=== PATIENT | female | born 1975 | race Caucasian/White ===

== ENCOUNTER 2022-05-03 07:50 | Outpatient (CLI) | payer BC, SELFPAY ==
[2022-05-03 14:00] LABS: Iron* 49 ug/dL (37-170)
[2022-05-03 14:01] LABS: Creatinine Urine 13.7 mg/dL
[2022-05-03 14:04] LABS: Albumin* 4.1 g/dL (3.3-5.0); Chloride* 103 mmol/L (96-114)
[2022-05-03 14:05] LABS: Microalbumin Creatinine Ratio 70 mg/g (0-30); Microalbumin Urine < 1 mg/dL; Potassium* 4.2 mmol/L (3.6-5.1); Sodium* 137 mmol/L (135-149)
[2022-05-03 14:07] LABS: Aspartate Amino Transferase* 25 U/L (12-35); Blood Urea Nitrogen* 10 mg/dL (5-24); Carbon Dioxide* 30 mmol/L (20-32); Creatinine* 0.6 mg/dL (0.5-1.5); Estimated Glomerular Filt Rate 113 ml/min
[2022-05-03 14:08] LABS: Alanine Aminotransferase* 22 U/L (4-35); Calcium* 9.2 mg/dL (8.4-10.6); Glucose* 85 mg/dL (60-115); Phosphorus* 3.9 mg/dL (2.5-4.5); Uric Acid* 2.9 mg/dL (2.2-8.4)
[2022-05-03 14:10] LABS: Percent Iron Saturation 12 % (20-50); Total Iron Binding Capacity 410 ug/dL (265-497)
[2022-05-03 14:38] LABS: Ferritin* 5.7 ng/mL (6.24-137.0)
== END 2022-05-03 07:51 | disposition home or self-care (01) ==
PROVIDERS: PCP Physician Assistant Medical; Visit Provider Internal Medicine Nephrology
DX: D50.9 Iron deficiency anemia, unspecified (principal); E87.1 Hypo-osmolality and hyponatremia; I10 Essential (primary) hypertension; N18.1 Chronic kidney disease, stage 1; L29.9 Pruritus, unspecified; R42 Dizziness and giddiness
CPT/HCPCS: 80069; 82043; 82570; 82728; 83540; 83550; 84450; 84460; 84550

== ENCOUNTER 2022-08-02 15:05 | Outpatient (CLI) | payer BC, SELFPAY ==
[2022-08-02 14:24] LABS: Albumin* 4.1 g/dL (3.3-5.0); Chloride* 101 mmol/L (96-114); Potassium* 4.1 mmol/L (3.6-5.1); Sodium* 138 mmol/L (135-149)
[2022-08-02 14:27] LABS: Blood Urea Nitrogen* 12 mg/dL (5-24); Carbon Dioxide* 30 mmol/L (20-32); Creatinine* 0.5 mg/dL (0.5-1.5); Estimated Glomerular Filt Rate 118 ml/min
[2022-08-02 14:28] LABS: Glucose* 87 mg/dL (60-115); Phosphorus* 4.1 mg/dL (2.5-4.5); Uric Acid* 3.3 mg/dL (2.2-8.4)
[2022-08-02 14:45] LABS: C Reactive Protein* < 0.5 mg/dL (0.5-1.0)
[2022-08-02 15:43] LABS: Creatinine Urine 9.2 mg/dL; Microalbumin Creatinine Ratio 100 mg/g (0-30); Microalbumin Urine < 1 mg/dL
[2022-08-02 16:08] LABS: Iron* 49 ug/dL (37-170)
[2022-08-02 16:17] LABS: Percent Iron Saturation 12 % (20-50); Total Iron Binding Capacity 418 ug/dL (265-497)
[2022-08-02 16:44] LABS: Ferritin* 8.3 ng/mL (6.24-137.0)
== END 2022-08-02 15:06 | disposition home or self-care (01) ==
PROVIDERS: PCP Physician Assistant Medical; Visit Provider Internal Medicine Nephrology
DX: D50.9 Iron deficiency anemia, unspecified (principal); N18.1 Chronic kidney disease, stage 1
CPT/HCPCS: 80069; 82043; 82570; 82728; 83540; 83550; 84550; 86140

== ENCOUNTER 2023-01-24 08:01 | Outpatient (CLI) | payer BC, SELFPAY | END 2023-01-24 08:02 | disposition home or self-care (01) | LOC: NFLDREF 01-27 08:46 | PROVIDERS: PCP Physician Assistant Medical; Referring Provider Physician Assistant Medical; Visit Provider Internal Medicine Nephrology | DX: D50.9 Iron deficiency anemia, unspecified (principal); E87.1 Hypo-osmolality and hyponatremia; N18.1 Chronic kidney disease, stage 1 | CPT/HCPCS: 80069; 82043; 82570; 82728; 83540; 83550; 84450; 84460; 84550 ==

== ENCOUNTER 2023-08-30 09:59 | Outpatient (CLI) | payer BC, SELFPAY | END 2023-08-30 10:00 | disposition home or self-care (01) | LOC: NFLDREF 08-31 06:37 | PROVIDERS: PCP Physician Assistant Medical; Referring Provider Physician Assistant Medical; Visit Provider Internal Medicine Nephrology | DX: D50.9 Iron deficiency anemia, unspecified (principal); E87.1 Hypo-osmolality and hyponatremia; N18.1 Chronic kidney disease, stage 1; R73.09 Other abnormal glucose | CPT/HCPCS: 80069; 82728; 83540; 83550; 86140; 87086 ==

== ENCOUNTER 2023-10-16 07:45 | Outpatient (CLI) | payer BC, SELFPAY ==
--- NOTE | 2023-10-16 08:00 | CRLHL7_ITS ---
For Patients: As a result of the Century Cures Act, medical imaging exams and procedure reports are released immediately into your electronic medical record. You may view this report before your referring provider. If you have questions, please contact your health care provider. Indication: Injury to nose Technique: CT of the paranasal sinuses without contrast. Coronal and sagittal reformatted images. Bone and soft tissue algorithms. Comparison: 06/15/18 CT Findings: Frontal sinuses: The frontal sinuses and frontal recesses are clear. Ethmoid air cells: The ethmoid air cells are clear. Symmetric depths of the olfactory fossa. The anterior ethmoidal arteries course through pneumatized air cells. Sphenoid sinuses: The sphenoid sinuses and ostia are clear. No optic canal or carotid canal dehiscence. Maxillary sinuses: Polypoid mucosal thickening along the floor of the left maxillary sinus measures up to 9 mm. Trace mucosal thickening along the floor of the right maxillary sinus. The osteomeatal units are clear. Bilateral Fernando air cells. Nasal cavity: Punctate minimally displaced fractures along the anterior nasal spine (series 3 image 38). Rightward deviation of nasal septum with septal spur contacting the inferior turbinate. No meaghan bullosa. No paradoxical turbinates. Skullbase, maxilla, TMJ: No lytic or blastic osseous lesions. No periapical tooth lucencies. Mastoid air cells are clear. Advanced right temporomandibular joint degenerative changes are partially visualized. Orbital contents: Unremarkable Imaged intracranial contents: Unremarkable Imaged soft tissues structures: Unremarkable IMPRESSION: 1. Punctate minimally displaced fractures along the anterior nasal spine. 2. Rightward deviation of nasal septum with septal spur contacting the inferior turbinate. 3. Mild polypoid mucosal thickening along the floor of the left maxillary sinus. 4. Advanced right temporomandibular joint degenerative changes (significant worsening since 2018). Please note that all CT scans at this facility use dose modulation, iterative reconstruction, and/or weight-based dosing when appropriate to reduce radiation dose to as low as reasonably achievable. Dictated by Adam Waters MD @ 10/16/2023 9:23:59 AM (Electronically Signed)
== END 2023-10-16 07:46 | disposition home or self-care (01) ==
LOC: CT 07:46
PROVIDERS: PCP Physician Assistant Medical; Visit Provider Otolaryngology
DX: S09.92XA Unspecified injury of nose, initial encounter (principal); S02.2XXA Fracture of nasal bones, initial encounter for closed fracture; J34.2 Deviated nasal septum; J32.0 Chronic maxillary sinusitis; M26.601 Right temporomandibular joint disorder, unspecified
CPT/HCPCS: 70486

== ENCOUNTER 2023-11-17 10:24 | Day surgery (SDC) | payer BC, SELFPAY ==
[2023-11-17] VITALS (10 sets, daily range): BP systolic 109–135; BP diastolic 61–84; PULSE 76–103; RESP 12–19; TEMP 36.3–37.1; O2SAT 94–97; BMI 29.0
[2023-11-17] MEDS: SODIUM CHLORIDE 0.9 % (FLUSH) 10 ML SYRINGE IVF (11:04)
[2023-11-17] MEDS: LACTATED RINGERS 1000 ML 1,000 ML 100 ML IV (11:05)
[2023-11-17] MEDS: OXYMETAZOLINE 0.05% NASAL SPRAY 2 SPRAY NOSTRIL-B (12:00)
[2023-11-17] MEDS: BUPIVACAINE 0.5%/EPINEPHRINE 0.9 MG (30.9 ML) INJECTION (12:45)
[2023-11-17] MEDS: MUPIROCIN 1 GM PACKET 1 APPLIC TOPICAL (12:45)
[2023-11-17] MEDS: COCAINE HCL 4 % 4 ML SOLUTION NOSTRIL-B (12:45)
--- NOTE | 2023-11-17 13:16 | P.ENTPROC_ITS ---
Procedure Note Date of procedure: 11/17/23 Procedure: Preoperative diagnosis deviated septum nasal obstruction bilateral inferior turbinate hypertrophy Postoperative diagnosis same Procedure nasal septoplasty, submucous partial resection inferior turbinates bilateral Under general endotracheal anesthesia patient was prepped and draped usual fashion nose decongested and injected. Incision was made in the septal mucosa anterior to the right flexion and area 3. The mucosa on either side was elevated and the deflected portions of bone and cartilage were resected. A single piece was trimmed and returned to intraseptal space. A stab incision was made in the anterior of the right inferior turbinate a tunnel created with a Concordia dissector. The meaghan bone was outfractured a conservative anterior submucous resection was performed. This was repeated on the left side in ident ical fashion. The Coblation was used for hemostasis on each side. Merocel packing coated in Bactroban was placed on either side of the septum. The patient procedure well was taken recovery satisfactory condition blood loss 10 mL. Surgeon: Kelechi Tobias MD
--- NOTE | 2023-11-17 13:20 | W.ANESCHARGE ---
Anesthesia Charges Start Date/Time Anesthesia Start Date: 11/17/23 Anesthesia Start Time: 12:39 Stop Date/Time Anesthesia Stop Date: 11/17/23 Anesthesia Stop Time: 13:20
--- NOTE | 2023-11-17 13:43 | W.ANESCHARGE ---
Anesthesia Charges Start Date/Time Anesthesia Start Date: 11/17/23 Anesthesia Start Time: 12:39 Stop Date/Time Anesthesia Stop Date: 11/17/23 Anesthesia Stop Time: 13:20
[2023-11-17] MEDS: OXYCODONE 5 MG TABLET PO (14:03)
== END 2023-11-17 14:33 | disposition home or self-care (01) ==
LOC: OR 10:25
PROVIDERS: PCP Physician Assistant Medical; Visit Provider Otolaryngology
PROC: (CPT 30520; principal; 2023-11-17 11:45)
DX: J34.2 Deviated nasal septum (principal); J34.3 Hypertrophy of nasal turbinates; J34.89 Other specified disorders of nose and nasal sinuses
CPT/HCPCS: 30520; 30140; 00160; A9270; J0330; J1100; J2405; J3010; J7120

== ENCOUNTER 2023-12-25 07:41 | Outpatient (CLI) | payer BC, SELFPAY | END 2023-12-25 07:42 | disposition home or self-care (01) | LOC: NFLDREF 12-29 08:36 | PROVIDERS: PCP Physician Assistant Medical; Referring Provider Physician Assistant Medical; Visit Provider Internal Medicine Nephrology | DX: D50.9 Iron deficiency anemia, unspecified (principal); E87.1 Hypo-osmolality and hyponatremia; N18.1 Chronic kidney disease, stage 1 | CPT/HCPCS: 80069; 82043; 82570; 82728; 83540; 83550; 84550; 87086 ==

== ENCOUNTER 2024-01-01 17:15 | Outpatient (CLI) | payer BC, SELFPAY | END 2024-01-01 17:16 | disposition home or self-care (01) | LOC: NFLDREF 01-03 07:25 | PROVIDERS: PCP Physician Assistant Medical; Referring Provider Physician Assistant Medical; Visit Provider Internal Medicine Nephrology | DX: R53.83 Other fatigue (principal); M79.662 Pain in left lower leg; I10 Essential (primary) hypertension; E87.1 Hypo-osmolality and hyponatremia | CPT/HCPCS: 84443 ==

== ENCOUNTER 2024-01-08 14:49 | Outpatient (CLI) | payer BC, SELFPAY ==
--- NOTE | 2024-01-08 15:00 | US_ITS ---
Patient: EWA MOORE Facility:?[facility] Patient ID:?[id number] Site Patient ID:?[id number]. Site :?1975 Study:?US-Extremity Left LEV LT-01/08/2024 3:58:42 PM Ordering Physician:?KAROLINA SWEET Final Report: Indication: Left calf pain and swelling, hx of DVT Technique: Venous duplex ultrasound of the left lower extremity, deep vein thrombosis protocol, utilizing compression with grayscale and color and spectral Doppler Comparison: None Findings: Nonocclusive deep vein thrombosis in 1 of the 2 peroneal veins. No additional deep vein thrombosis in the interrogated veins of the left lower extremity. There is no superficial vein thrombosis. The soft tissues are within normal limits. Impression: Nonocclusive deep vein thrombosis in 1 of the 2 peroneal veins of the left lower extremity. Dictated by Dean Moyer MD @ 01/08/2024 4:23:40 PM Signed by:?Dean Moyer MD @01/08/2024 4:23:40 PM (Electronic Signature)
== END 2024-01-08 14:50 | disposition home or self-care (01) ==
PROVIDERS: PCP Physician Assistant Medical; Visit Provider Internal Medicine Nephrology
DX: M79.662 Pain in left lower leg (principal); I82.452 Acute embolism and thrombosis of left peroneal vein
CPT/HCPCS: 93971

== ENCOUNTER 2024-04-30 14:32 | Outpatient (CLI) | payer OTHER, SELFPAY | END 2024-04-30 14:33 | disposition home or self-care (01) | PROVIDERS: PCP Physician Assistant Medical; Visit Provider Physician Assistant Medical | DX: R53.83 Other fatigue (principal); E87.1 Hypo-osmolality and hyponatremia; I10 Essential (primary) hypertension; D50.9 Iron deficiency anemia, unspecified; N18.1 Chronic kidney disease, stage 1; E53.8 Deficiency of other specified B group vitamins; E55.9 Vitamin D deficiency, unspecified; R63.4 Abnormal weight loss; R19.7 Diarrhea, unspecified | CPT/HCPCS: 80069; 82043; 82570; 82728; 83540; 83550; 84443; 84550; 86140; 87086; 87186; 87205 ==

== ENCOUNTER 2024-05-01 10:00 | Outpatient (CLI) | payer OTHER, SELFPAY ==
--- NOTE | 2024-05-09 12:10 | ONC.NURNOTE ---
Dx: Low ferritin
== END 2024-05-01 10:01 | disposition home or self-care (01) ==
LOC: NFLDREF 05-02 02:33
PROVIDERS: PCP Physician Assistant Medical; Referring Provider Physician Assistant Medical; Visit Provider Physician Assistant Medical
DX: R19.7 Diarrhea, unspecified (principal)
CPT/HCPCS: 87493; 87505

== ENCOUNTER 2024-05-03 16:46 | Outpatient (CLI) | payer OTHER, SELFPAY ==
--- NOTE | 2024-05-03 17:00 | CRLHL7_ITS ---
For Patients: As a result of the Century Cures Act, medical imaging exams and procedure reports are released immediately into your electronic medical record. You may view this report before your referring provider. If you have questions, please contact your health care provider. INDICATION: Acute embolism and thrombosis of unspecified deep vein. COMPARISON: Left lower extremity venous ultrasound 01/08/2024. TECHNIQUE: A compression venous ultrasound exam was performed of the left lower extremity using jackson-scale imaging, color Doppler, and spectral Doppler analysis. FINDINGS: Sonographic imaging of the left lower extremity demonstrates normal compressibility and color Doppler venous blood flow within the common femoral, femoral, deep femoral, and proximal greater saphenous veins. At a lower level the popliteal, peroneal, and posterior tibial veins also show normal compressibility and color Doppler venous blood flow. Limited imaging of the contralateral groin demonstrates a normal spectral waveform and color Doppler venous blood flow within the right common femoral vein. IMPRESSION: 1. Negative for acute DVT in the left lower extremity. 2. Resolution of the previously seen thrombus. Dictated by Taylor Kerr MD @ 05/04/2024 3:03:52 AM (Electronically Signed)
== END 2024-05-03 16:47 | disposition home or self-care (01) ==
LOC: US 16:47
PROVIDERS: PCP Physician Assistant Medical; Visit Provider Physician Assistant Medical
DX: I82.409 Acute embolism and thrombosis of unspecified deep veins of unspecified lower extremity (principal)
CPT/HCPCS: 93971

== ENCOUNTER 2024-05-27 08:30 | Outpatient (RCR) | payer OTHER, SELFPAY ==
--- NOTE | 2024-05-10 10:47 | URNOTE ---
Prior auth is not required for Isabel([id number]) per [facility], REf #[id number]
[2024-05-14 13:07] VITALS: BP 103/58; PULSE 78; RESP 16; TEMP 36.4; O2SAT 98
[2024-05-14] MEDS: IRON SUCROSE COMPLEX 200 MG in 0.9 % SODIUM CHLORIDE 100 ml 440 MG IVPB (13:32)
[2024-05-14 13:53] VITALS: BP 89/55; PULSE 67; RESP 18; TEMP 36.1; O2SAT 95
[2024-05-14 14:17] VITALS: BP 124/82; PULSE 69; RESP 16; TEMP 36.4; O2SAT 98
[2024-05-16 08:15] VITALS: BP 116/64; PULSE 69; RESP 16; TEMP 35.8; O2SAT 99
[2024-05-16] MEDS: SODIUM CHLORIDE 0.9 % (FLUSH) 10 ML SYRINGE IVF ×2 (08:35→09:30)
[2024-05-16] MEDS: 0.9 % SODIUM CHLORIDE 250 ml IV ×2 (08:35→09:30)
[2024-05-16] MEDS: IRON SUCROSE COMPLEX 200 MG in 0.9 % SODIUM CHLORIDE 100 ml 440 MG IVPB (08:35)
[2024-05-16 09:30] VITALS: BP 109/76; PULSE 68; RESP 16; TEMP 36.2; O2SAT 97
[2024-05-21 08:27] VITALS: BP 119/78; PULSE 68; RESP 16; TEMP 35.9; O2SAT 100
[2024-05-21] MEDS: IRON SUCROSE COMPLEX 200 MG in 0.9 % SODIUM CHLORIDE 100 ml 440 MG IVPB (08:51)
[2024-05-21] MEDS: 0.9 % SODIUM CHLORIDE 250 ml IV (08:51)
[2024-05-21] MEDS: SODIUM CHLORIDE 0.9 % (FLUSH) 10 ML SYRINGE IVF (08:51)
[2024-05-21 09:10] VITALS: BP 101/59; PULSE 77; RESP 16; TEMP 36.5; O2SAT 98
[2024-05-21 09:56] VITALS: BP 133/73; PULSE 77; RESP 14; TEMP 36.3; O2SAT 97
[2024-05-23 07:56] VITALS: BP 123/79; PULSE 69; RESP 16; TEMP 36.1; O2SAT 99
[2024-05-23] MEDS: IRON SUCROSE COMPLEX 200 MG in 0.9 % SODIUM CHLORIDE 100 ml 440 MG IVPB (08:23)
[2024-05-23] MEDS: 0.9 % SODIUM CHLORIDE 250 ml IV (08:24)
[2024-05-23] MEDS: SODIUM CHLORIDE 0.9 % (FLUSH) 10 ML SYRINGE IVF (08:24)
[2024-05-27 08:20] VITALS: BP 109/65; PULSE 68; RESP 16; TEMP 36; O2SAT 98
[2024-05-27] MEDS: 0.9 % SODIUM CHLORIDE 250 ml IV (09:13)
[2024-05-27] MEDS: IRON SUCROSE COMPLEX 200 MG in 0.9 % SODIUM CHLORIDE 100 ml 440 MG IVPB (09:14)
[2024-05-27 09:33] VITALS: BP 112/74; PULSE 70; RESP 18; O2SAT 98
[2024-05-27 10:03] VITALS: BP 118/78; PULSE 66; RESP 16
== END 2024-11-10 23:59 | disposition home or self-care (01) ==
LOC: CCIC 08:30
PROVIDERS: PCP Physician Assistant Medical; Referring Provider Physician Assistant Medical; Visit Provider Clinical Nurse Specialist
DX: D50.9 Iron deficiency anemia, unspecified (principal)
CPT/HCPCS: 96365; 96374; J1756; J7050

== ENCOUNTER 2024-07-11 15:31 | Outpatient (CLI) | payer OTHER, SELFPAY ==
[2024-07-11 15:59] LABS: Creatinine* 0.6 mg/dL (0.5-1.5); Estimated Glomerular Filt Rate 111 ml/min
--- NOTE | 2024-07-11 16:00 | CRLHL7_ITS ---
For Patients: As a result of the 21st Century Cures Act, medical imaging exams and procedure reports are released immediately into your electronic medical record. You may view this report before your referring provider. If you have questions, please contact your health care provider. Indication: DEEP VEIN THROMBOSIS, IRON Deficiency ANEMIA Technique: CT Chest/Abd/Pelvis w/ 85cc [id number] Please note that all CT scans at this facility use dose modulation, iterative reconstruction, and/or weight-based dosing when appropriate to reduce radiation dose to as low as reasonably achievable. Comparison: 10/28/2017 CT abdomen and pelvis Findings: In the chest, the small incidental perifissural nodule is present on the right measuring 3.3 millimeters, 3/51. Mild linear subsegmental scarring at the lingula. No pleural effusion or infiltrate. No pulmonary edema or pneumothorax. Incidental elongation of the right thyroid lobe noted posteriorly without suspicious thyroid nodule. No adenopathy in the mediastinum, kareem or axilla. Wedging of the L1 vertebral body noted at the superior endplate. In the abdomen, the liver parenchyma is within normal limits. No suspicious mass. The spleen is normal. No adrenal nodule. No hydronephrosis. The kidneys are normal. Normal pancreas. Postop changes to the stomach. Gallbladder absent. No biliary obstruction. Subcentimeter retroperitoneal lymph nodes are present. The portal vein is widely patent. In the pelvis, the bladder is normal. No pelvic mass. Postop changes hysterectomy. Increased stool is present within a somewhat redundant colon. Small bowel loops are mildly prominent within pelvis containing air/fluid levels. No bowel wall thickening. No free air, free fluid or abscess. No enlarged lymph nodes within the pelvic sidewall or inguinal regions. Impression: Excess stool within a somewhat redundant colon consistent with chronic constipation. Mildly prominent small bowel loops are present suggesting adynamic ileus. No mechanical obstruction or acute inflammation. Postop changes of gastric bypass. Wedge compression deformity of L1 has developed since the prior study. Incidental 3.3 millimeter perifissural nodule right lung. Normal patency of the main portal vein. No adenopathy. Please note that all CT scans at this facility use dose modulation, iterative reconstruction, and/or weight-based dosing when appropriate to reduce radiation dose to as low as reasonably achievable. Dictated by Adam Avila MD @ 07/12/2024 1:08:48 PM (Electronically Signed)
== END 2024-07-11 15:32 | disposition home or self-care (01) ==
PROVIDERS: PCP Physician Assistant Medical; Visit Provider Internal Medicine Hematology & Oncology
DX: I80.2 Phlebitis and thrombophlebitis of other and unspecified deep vessels of lower extremities (principal); D50.8 Other iron deficiency anemias; K59.00 Constipation, unspecified; R91.8 Other nonspecific abnormal finding of lung field; F17.200 Nicotine dependence, unspecified, uncomplicated
CPT/HCPCS: 36415; 71260; 74177; 82565; Q9967

== ENCOUNTER 2024-07-16 12:47 | Outpatient (CLI) | payer OTHER, SELFPAY ==
--- NOTE | 2024-07-16 13:00 | MR_ITS ---
[address] [address] Phone:?[phone] Fax:?[phone] Referring Physician Information: Stephen Roberts M.D. [address] [facility] [address] Phone:?[phone] Fax:?[phone] Patient:Keira Whitaker D.O.B:?1975 Sex:?Female Phone:?[phone] [facility] MRN:?[id number] Exam Date:?07/16/2024 EXAM: MRI EXAMINATION OF THE RIGHT FOOT CLINICAL INFORMATION: Right foot pain. Status post injury. No history of surgery to this area. TECHNICAL INFORMATION: Axial PD and STIR. Coronal T1, T2 and STIR. Sagittal PD and T2-weighted images were acquired. No prior studies for comparison. INTERPRETATION: Bones and joints: There is a mild appearance of deformity as may be related to a chronic, healed fracture towards the base of the fifth metatarsal. There is a poorly defined appearance of marrow edema signal within the proximal shaft. There is no evidence for associated periostosis. No discrete osteochondral lesion or discrete lesion to indicate AVN. Medial and lateral hallux sesamoids appear normal in signal intensity and morphology. Mild, likely degenerative osseous cystic changes involving the medial aspect of the first metatarsal head. Ligaments: The Lisfranc ligament is intact. TMT joint alignment appears within normal limits. Collateral ligaments at the MTP joints appear intact without acute sprain or tear. Tendons: Peroneus longus and brevis tendon insertions appear intact. Remainder of the visualized flexor and extensor tendons appear intact without significant tendinopathy, and without tenosynovitis, tendon split or tendon disruption. Soft tissues: No discrete soft tissue cyst, mass or focal fluid collection. CONCLUSION: 1. Mild deformity as may be related to a chronic, healed fracture towards the base of the fifth metatarsal. 2. Poorly defined marrow edema signal involves the proximal shaft of the fifth metatarsal. No evidence for associated periostosis. Question whether this may be related to a component of occult bony stress injury. 3. Intact Lisfranc ligament with unremarkable TMT joint alignment. 4. No appreciable changes of tendon pathology. No other internal derangement. KES Electronically signed on 07/17/2024 9:12:00 AM by Ghassan Arcos M.D.
== END 2024-07-16 12:48 | disposition home or self-care (01) ==
LOC: MRI 12:48
PROVIDERS: PCP Physician Assistant Medical; Visit Provider Internal Medicine Sports Medicine
DX: M79.671 Pain in right foot (principal); S92.351D Displaced fracture of fifth metatarsal bone, right foot, subsequent encounter for fracture with routine healing; S99.921A Unspecified injury of right foot, initial encounter
CPT/HCPCS: 73718

== ENCOUNTER 2024-08-28 13:51 | Outpatient (CLI) | payer OTHER, SELFPAY ==
--- NOTE | 2024-08-28 14:00 | CRLHL7_ITS ---
For Patients: As a result of the Century Cures Act, medical imaging exams and procedure reports are released immediately into your electronic medical record. You may view this report before your referring provider. If you have questions, please contact your health care provider. INDICATION: Leg pain and swelling TECHNIQUE: Ultrasound venous duplex lower left extremity. Compression venous exam was performed using jackson-scale, color Doppler, and spectral Doppler analysis. COMPARISON: None. FINDINGS: Sonographic imaging demonstrates the left common femoral, deep femoral, superficial femoral, popliteal, posterior tibial and greater saphenous and the contralateral right common femoral veins to be fully compressible with normal color Doppler blood flow. IMPRESSION: Normal left lower extremity venous ultrasound, no sign of deep venous thrombosis. Dictated by Jostin Graf MD @ 08/28/2024 3:02:22 PM (Electronically Signed)
== END 2024-08-28 13:52 | disposition home or self-care (01) ==
LOC: US 13:52
PROVIDERS: PCP Physician Assistant Medical; Visit Provider Internal Medicine Hematology & Oncology
DX: M79.605 Pain in left leg (principal); R22.42 Localized swelling, mass and lump, left lower limb; D50.8 Other iron deficiency anemias; F17.200 Nicotine dependence, unspecified, uncomplicated; I82.409 Acute embolism and thrombosis of unspecified deep veins of unspecified lower extremity
CPT/HCPCS: 93971

== ENCOUNTER 2025-03-24 13:36 | Outpatient (CLI) | payer OTHER, SELFPAY | END 2025-03-24 13:37 | disposition home or self-care (01) | LOC: NFLDREF 03-26 01:38 | PROVIDERS: PCP Physician Assistant Medical; Referring Provider Physician Assistant Medical; Visit Provider Physician Assistant Medical | DX: R79.0 Abnormal level of blood mineral (principal); E53.8 Deficiency of other specified B group vitamins; D50.9 Iron deficiency anemia, unspecified; E87.1 Hypo-osmolality and hyponatremia; I67.1 Cerebral aneurysm, nonruptured; G43.909 Migraine, unspecified, not intractable, without status migrainosus; D50.8 Other iron deficiency anemias | CPT/HCPCS: 80053; 82607; 82728; 84443 ==

== ENCOUNTER 2025-04-10 13:31 | Outpatient (CLI) | payer OTHER, SELFPAY ==
--- NOTE | 2025-04-10 | MR_ITS ---
Patient: EWA MAGAÑA Facility:?[facility] Patient ID:?[id number] Site Patient ID:?[id number]. Site :?1975 Study:?MRI-Head Angio WO-04/10/2025 4:03:44 PM Ordering Physician:Milad Jama Final Report: EXAMINATION: MRA HEAD WITHOUT CONTRAST DATE: 04/10/2025. HISTORY: Patient with known brain aneurysm. TECHNIQUE: 3D TOF MRA of the head was performed. COMPARISON: MRA 06/15/2018. FINDINGS: There has been no interval change in the untreated 2.5mm right cavernous ICA aneurysm. There are no new aneurysms. The rest of the intracranial vasculature is unremarkable. 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 Telehealth consultation with [facility]`s Neurointerventional team for enrollment in our long-term brain aneurysm surveillance program can be arranged by calling . Ariel Gibbs M.D. Neurointerventional Radiologist [facility] [place] Pager: Office/Referrals: [facility] Center: [email or web address] Dictated by: Ariel Gibbs MD @ 04/10/2025 18:33:45 (Electronic Signature)
--- NOTE | 2025-04-10 14:30 | CRLHL7_ITS ---
For Patients: As a result of the Century Cures Act, medical imaging exams and procedure reports are released immediately into your electronic medical record. You may view this report before your referring provider. If you have questions, please contact your health care provider. INDICATION: Cerebral aneurysm. Comparison 06/15/2018. TECHNIQUE: Multiplanar T1, T2, FLAIR and diffusion-weighted imaging.. Post gadolinium T1 weighted sequences. Gadolinium 20 cc IV FINDINGS: Normal brain parenchymal morphology and signal intensity. No intracranial hemorrhage. No abnormal ventricular dilatation. Intracranial vascular flow voids are preserved. No mass or mass effect. No midline shift. No restricted diffusion to suggest acute ischemia. No susceptibility artifact of remote hemorrhage. No abnormal enhancement or enhancing lesions. Bilateral orbits are unremarkable. Normal appearing sella. Visualized paranasal sinuses and mastoid air cells are unremarkable. IMPRESSION: 1. No interval change 2. No acute intracranial abnormality. 3. Normal brain parenchymal morphology and signal intensity. 4. No acute or chronic intracranial hemorrhage. 5. No abnormal enhancement or enhancing lesions Dictated by Ricardo Washburn MD @ 04/12/2025 4:18:46 PM (Electronically Signed)
--- NOTE | 2025-04-10 15:30 | CRLHL7_ITS ---
For Patients: As a result of the Century Cures Act, medical imaging exams and procedure reports are released immediately into your electronic medical record. You may view this report before your referring provider. If you have questions, please contact your health care provider. INDICATION: Cerebral aneurysm. Comparison 06/15/2018. TECHNIQUE: [id number] and gadolinium bolus MRA of the neck. 3D reconstructed images. Gadolinium 20 cc IV. FINDINGS: No focal flow-void on [id number] MRA to suggest high-grade stenosis. Gadolinium bolus MRA demonstrates patent bilateral carotid artery circulations from the origin to the skullbase. No focal stenosis. Patent bilateral vertebral artery circulations from the origin to the vertebrobasilar junction. No high-grade stenosis or dissection. IMPRESSION: Normal MRA neck. Dictated by Ricardo Washburn MD @ 04/12/2025 4:15:10 PM (Electronically Signed)
== END 2025-04-10 13:32 | disposition home or self-care (01) ==
LOC: MRI 13:32
PROVIDERS: PCP Physician Assistant Medical; Visit Provider Physician Assistant Medical
DX: I67.1 Cerebral aneurysm, nonruptured (principal); G43.909 Migraine, unspecified, not intractable, without status migrainosus
CPT/HCPCS: 70544; 70549; 70553; A9575

== ENCOUNTER 2025-05-27 15:30 | Outpatient (RCR) | payer OTHER, SELFPAY | END 2025-09-24 23:59 | disposition home or self-care (01) | PROVIDERS: PCP Physician Assistant Medical; Visit Provider Physician Assistant Medical | DX: M54.9 Dorsalgia, unspecified (principal); V89.2XXD Person injured in unspecified motor-vehicle accident, traffic, subsequent encounter; Z51.89 Encounter for other specified aftercare | CPT/HCPCS: 97032; 97110; 97112; 97140; 97161 ==

== ENCOUNTER 2025-09-11 13:15 | Outpatient (CLI) | payer OTHER, SELFPAY | END 2025-09-11 13:16 | disposition home or self-care (01) | LOC: NFLDREF 09-17 08:46 | PROVIDERS: PCP Physician Assistant Medical; Referring Provider Physician Assistant Medical; Visit Provider Physician Assistant Medical | DX: R79.0 Abnormal level of blood mineral (principal); N18.1 Chronic kidney disease, stage 1; E55.9 Vitamin D deficiency, unspecified; Z13.6 Encounter for screening for cardiovascular disorders | CPT/HCPCS: 80061; 82306; 82728 ==